=== PATIENT | female | born 1995 | race Caucasian/White ===

== ENCOUNTER 2017-09-05 13:20 | Outpatient (CLI) | payer MEDICAID ==
[~2017-09-05] VITALS: Ht 154.9 cm; Wt 82.6 kg
[~2017-09-05 13:20] MED LIST: ONDA8TAB13
[2017-09-05] MEDS ORDERED: PNV11TAB5 PO ×2 (13:32)
[2017-09-05] MEDS ORDERED: MONT10TA21 PO ×2 (13:33)
[2017-09-05] MEDS ORDERED: RT-ALBUINH IH ×2 (13:35)
[2017-09-05] MEDS ORDERED: BUDE180A IH ×2 (13:36)
[2017-09-05 13:40] VITALS: BP 127/74
[2017-09-05 14:10] VITALS: BP 121/57
[2017-09-05] MEDS ORDERED: D5 LR IV SOLUTION 1,000 ML IV ONE (14:30)
[2017-09-05 14:40] VITALS: BP 121/57
[2017-09-05 14:48] LABS: BILIRUBIN,URINE NEGATIVE (NEGATIVE); CLARITY,URINE SLIGHTLY CLOUDY; COLOR,URINE AMBER; GLUCOSE, URINE (UA) NEGATIVE (NEGATIVE); KETONES,URINE NEGATIVE (NEGATIVE); LEUKOCYTE ESTERASE ,URINE 2+ (NEGATIVE); NITRITE,URINE NEGATIVE (NEGATIVE); PH,URINE 6.5 (5-9); PROTEIN,URINE 1+ (NEGATIVE); UROBILINOGEN,URINE NORMAL (NORMAL)
[2017-09-05 15:16] LABS: BACTERIA,URINE FEW /HPF; CALCIUM OXALATE CRYSTALS,UR MODERATE /LPF
[2017-09-05 15:18] LABS: BASOPHILS % (AUTO) 0 % (0-10); EOSINOPHILS # (AUTO) 0.2 10^3/uL (0.0-0.3); EOSINOPHILS % (AUTO) 2 % (0-10); HEMATOCRIT 30 % (35-52); LYMPHOCYTES # (AUTO) 1.2 X 10^3 (1.0-4.0); LYMPHOCYTES % (AUTO) 15 % (12-44); MEAN CORPUSCULAR HEMOGLOBIN 28 PG (25-34); MEAN CORPUSCULAR HGB CONC 33 G/DL (32-36); MEAN CORPUSCULAR VOLUME 85 FL (80-99); MEAN PLATELET VOLUME 10.5 FL (7.4-10.4); MONOCYTES # (AUTO) 0.8 X 10^3 (0.0-1.0); MONOCYTES % (AUTO) 10 % (0-12); NEUTROPHILS # (AUTO) 5.9 X 10^3 (1.8-7.8); NEUTROPHILS % (AUTO) 73 % (42-75); PLATELET COUNT 146 10^3/uL (130-400); RED BLOOD COUNT 3.56 10^6/uL (4.35-5.85); RED CELL DISTRIBUTION WIDTH 13.6 % (10.0-14.5); WHITE BLOOD COUNT 8.2 10^3/uL (4.3-11.0)
[2017-09-05 15:37] LABS: ALANINE AMINOTRANSFERASE 11 U/L (0-55); ALBUMIN 3.4 GM/DL (3.2-4.5); ALKALINE PHOSPHATASE 89 U/L (40-136); BILIRUBIN,TOTAL 0.2 MG/DL (0.1-1.0); BUN/CREATININE RATIO 14; CALCIUM 9.1 MG/DL (8.5-10.1); CARBON DIOXIDE 21 MMOL/L (21-32); CHLORIDE 109 MMOL/L (98-107); CREATININE SERUM 0.51 MG/DL (0.60-1.30); GFR ESTIMATED > 60; GLUCOSE 70 MG/DL (70-105); POTASSIUM 3.9 MMOL/L (3.6-5.0); SODIUM 138 MMOL/L (135-145); TOTAL PROTEIN 6.2 GM/DL (6.4-8.2)
[2017-09-05 16:15] VITALS: BP 118/59
[2017-09-05] MEDS ORDERED: D5 LR IV SOLUTION 1,000 ML IV SCH (16:15)
[2017-09-05] MEDS ORDERED: AMPICILLIN INJECTION 2,000 MG in NS (IVPB) 50 ML IV SCH (16:57)
[2017-09-05] MEDS ORDERED: BETAMETHASONE ACE/NA PHOS 6 MG/ML (CELESTONE SOLUSPAN) IM SCH (17:00)
[2017-09-05] MEDS ORDERED: AMPICILLIN 2000 MG INJECTION (IM/IV) ONE (17:01)
[2017-09-05] MEDS ORDERED: NS (IVPB) 50 ML ONE (17:02)
[2017-09-05] MEDS ORDERED: BETAMETHASONE ACE/NA PHOS 6 MG/ML (CELESTONE SOLUSPAN) ONE (17:02)
[2017-09-05] MEDS ORDERED: CATHETER FLUSH 10 ML SYR IV PRN (17:15)
[2017-09-05 18:05] VITALS: BP 112/53
[2017-09-05] MEDS ORDERED: AMPICILLIN INJECTION 1,000 MG in NS (IVPB) 50 ML IV SCH (21:00)
--- NOTE | 2017-09-06 11:09 | Physician Query-Final Dx ---
CAROLA LANDA 09/06/17 1109: Clinic Account Progress/Dx Physician Query: Please give diagnosis Date of Service Sep 05, 2017 at 13:20 YORDAN BENEDICT MD 09/07/17 0738: Clinic Account Progress/Dx DIAGNOSIS: Diagnosis labor CAROLA LANDA Sep 06, 2017 11:09 YORDAN BENEDICT MD Sep 07, 2017 07:38
== END 2017-09-05 20:10 | disposition home or self-care (01) ==
LOC: WSo 13:20 → LDRP 13:21 → 3RD 16:45 → LDRP 16:45 → WSo 20:10
PROVIDERS: ATTEND Obstetrics & Gynecology
DX: O60.03 Preterm labor without delivery, third trimester (principal); Z3A.34 34 weeks gestation of pregnancy
CPT/HCPCS: 36415; 80053; 81000; 85025; 87077; 87088; 87186; 96361; 96372; 96374; 99214

== ENCOUNTER → 2017-09-06 | Outpatient (CLI) | payer MEDICAID ==
[~2017-09-06] MED LIST changes: +BETAMETHASONE ACE/NA PHOS 6 MG/ML (CELESTONE SOLUSPAN) IM SCH; +BETAMETHASONE ACE/NA PHOS 6 MG/ML (CELESTONE SOLUSPAN) ONE; +BUDE180A IH; +MONT10TA21 PO; +PNV11TAB5 PO; +RT-ALBUINH IH
--- NOTE | 2017-09-07 10:12 | Physician Query-Final Dx ---
CAROLA LANDA 09/07/17 1012: Clinic Account Progress/Dx Physician Query: Please give diagnosis Date of Service Sep 06, 2017 at 16:33 YORDAN BENEDICT MD 09/07/17 1324: Clinic Account Progress/Dx DIAGNOSIS: Diagnosis labor CAROLA LANDA Sep 07, 2017 10:12 YORDAN BENEDICT MD Sep 07, 2017 13:24
== END ==
LOC: WSo 16:33
PROVIDERS: ATTEND Obstetrics & Gynecology
DX: O60.00 Preterm labor without delivery, unspecified trimester (principal)
CPT/HCPCS: 96372

== ENCOUNTER 2017-09-12 15:52 | Outpatient (CLI) | payer MEDICAID ==
[~2017-09-12] VITALS: Ht 154.9 cm; Wt 82.1 kg
[~2017-09-12 15:52] MED LIST changes: -BETAMETHASONE ACE/NA PHOS 6 MG/ML (CELESTONE SOLUSPAN) IM SCH; -BETAMETHASONE ACE/NA PHOS 6 MG/ML (CELESTONE SOLUSPAN) ONE
[2017-09-12 16:13] VITALS: BP 111/61
[2017-09-12] MEDS ORDERED: LACTATED RINGERS 1,000 ML IV PRN (16:38)
[2017-09-12] MEDS ORDERED: raNItidine INJECTION 50 MG in NS (IVPB) 50 ML IV ONE (16:45)
[2017-09-12] MEDS ORDERED: METOCLOPRAMIDE INJ 10 MG/2 ML (REGLAN) IV ONE (16:45)
[2017-09-12] MEDS ORDERED: CITRIC ACID/SOB CIT (BICITRA) 30 ML UDC PO ONE (16:45)
--- NOTE | 2017-09-13 11:41 | Physician Query-Final Dx ---
CAROLA LANDA 09/13/17 1141: Clinic Account Progress/Dx Physician Query: Please give diagnosis Date of Service Sep 12, 2017 at 15:52 YORDAN BENEDICT MD 09/13/17 1734: Clinic Account Progress/Dx DIAGNOSIS: Diagnosis False labor/vaginal cyst CAROLA LANDA Sep 13, 2017 11:41 YORDAN BENEDICT MD Sep 13, 2017 17:34
== END 2017-09-12 16:45 | disposition home or self-care (01) ==
LOC: WSo 15:52 → LDRP 15:53 → WSo 16:45
PROVIDERS: ATTEND Obstetrics & Gynecology
DX: O47.03 False labor before 37 completed weeks of gestation, third trimester (principal); O26.893 Other specified pregnancy related conditions, third trimester; N89.8 Other specified noninflammatory disorders of vagina; Z3A.35 35 weeks gestation of pregnancy
CPT/HCPCS: 99212

== ENCOUNTER 2020-10-25 12:39 | Emergency (ER) | payer MEDICAID ==
[~2020-10-25 12:39] MED LIST changes: +AMOX-355 PO; +DOCU100C37 PO; +IBUP-1780 PO; +METR500T PO; +OXYC-556 PO; +OXYC1TAB11 PO; +POTA25TA7 PO
[2020-10-28] MEDS ORDERED: ONDA8TAB13 PO (08:03)
[2020-10-28] MEDS ORDERED: AMOX-358 PO (08:03)
== END 2020-10-25 13:30 | disposition left against medical advice (07) ==
LOC: EDUNIT# 12:39 → ER 12:40
DX: R11.2 Nausea with vomiting, unspecified (principal); E16.2 Hypoglycemia, unspecified

== ENCOUNTER 2020-10-25 13:13 | Outpatient (CLI) | payer MEDICAID ==
[~2020-10-25] VITALS: Ht 154.7 cm; Wt 94.5 kg
[2020-10-25] MEDS ORDERED: D5 LR IV SOLUTION 1,000 ML IV SCH ×3 (13:45→14:00)
[2020-10-25] MEDS ORDERED: ACETAMINOPHEN 500 MG TAB (TYLENOL) PO ONE (14:00)
[2020-10-25 14:05] LABS: CLARITY,URINE CLEAR; COLOR,URINE YELLOW; GLUCOSE, URINE (UA) NEGATIVE (NEGATIVE); KETONES,URINE 3+ (NEGATIVE); LEUKOCYTE ESTERASE ,URINE NEGATIVE (NEGATIVE); NITRITE,URINE NEGATIVE (NEGATIVE); PROTEIN,URINE NEGATIVE (NEGATIVE)
[2020-10-25] MEDS ORDERED: ONDANSETRON 4 MG/2 ML (SDV) Z0FRAN ONE (14:14)
[2020-10-25 14:21] LABS: BILIRUBIN,URINE NEGATIVE (NEGATIVE)
[2020-10-25 14:22] LABS: BACTERIA,URINE MODERATE /HPF; RBC,URINE 0-2 /HPF
[2020-10-25 14:26] LABS: BASOPHILS % (AUTO) 0 % (0-10); EOSINOPHILS # (AUTO) 0.1 10^3/uL (0.0-0.3); EOSINOPHILS % (AUTO) 1 % (0-10); HEMATOCRIT 35 % (35-52); HEMOGLOBIN 11.6 g/dL (11.5-16.0); LYMPHOCYTES # (AUTO) 1.2 X 10^3 (1.0-4.0); LYMPHOCYTES % (AUTO) 13 % (12-44); MEAN CORPUSCULAR HEMOGLOBIN 29 pg (25-34); MEAN CORPUSCULAR HGB CONC 33 g/dL (32-36); MEAN CORPUSCULAR VOLUME 86 fL (80-99); MEAN PLATELET VOLUME 9.9 fL (9.0-12.2); MONOCYTES # (AUTO) 0.7 X 10^3 (0.0-1.0); MONOCYTES % (AUTO) 7 % (0-12); NEUTROPHILS # (AUTO) 7.4 X 10^3 (1.8-7.8); NEUTROPHILS % (AUTO) 79 % (42-75); PLATELET COUNT 225 10^3/uL (130-400); WHITE BLOOD COUNT 9.3 10^3/uL (4.3-11.0)
[2020-10-25 14:30] VITALS: BP 120/56
[2020-10-25 14:48] LABS: ALBUMIN 3.8 GM/DL (3.2-4.5); BILIRUBIN,TOTAL 0.3 MG/DL (0.1-1.0); CALCIUM 9.5 MG/DL (8.5-10.1); CREATININE SERUM 0.63 MG/DL (0.60-1.30); POTASSIUM 3.5 MMOL/L (3.6-5.0); TOTAL PROTEIN 7.1 GM/DL (6.4-8.2)
[2020-10-25 16:22] VITALS: BP 120/56
--- NOTE | 2020-10-26 08:28 | Physician Query-Final Dx ---
TASHA MAURO 10/26/20 0827: Clinic Account Progress/Dx Physician Query: Please give diagnosis Please include # weeks gestation Date of Service Oct 25, 2020 at 13:13 YORDAN BENEDICT MD 10/28/20 0811: Clinic Account Progress/Dx DIAGNOSIS: Diagnosis Hyperemesis gravidarum at 9 weeks gestation with bilateral mastitis TASHA MAURO Oct 26, 2020 08:27 YORDAN BENEDICT MD Oct 28, 2020 08:11
== END 2020-10-25 19:25 | disposition home or self-care (01) ==
LOC: WSo 13:13 → LDRP 13:14 → WSo 19:25
PROVIDERS: ATTEND Obstetrics & Gynecology
DX: O21.0 Mild hyperemesis gravidarum (principal); Z3A.09 9 weeks gestation of pregnancy; O91.211 Nonpurulent mastitis associated with pregnancy, first trimester
CPT/HCPCS: 36415; 80053; 81000; 85025; 87088; 96361; 96374; 99212

== ENCOUNTER 2020-10-27 10:25 | Observation (INO) | payer MEDICAID ==
[~2020-10-27] VITALS: Ht 154.9 cm; Wt 92.0 kg
[2020-10-27 10:40] VITALS: BP 110/52
[2020-10-27 10:45] VITALS: BP 110/52
[2020-10-27] MEDS ORDERED: ONDANSETRON 4 MG/2 ML (SDV) Z0FRAN IVP ONE ×2 (11:00→12:45)
[2020-10-27] MEDS: D5 LR IV SOLUTION 1,000 ML IV SCH ×4 (11:41→20:18)
[2020-10-27 11:53] LABS: BASOPHILS % (AUTO) 0 % (0-10); EOSINOPHILS % (AUTO) 0 % (0-10); HEMATOCRIT 35 % (35-52); HEMOGLOBIN 12.1 g/dL (11.5-16.0); LYMPHOCYTES # (AUTO) 1.3 10^3/uL (1.0-4.0); LYMPHOCYTES % (AUTO) 13 % (12-44); MEAN CORPUSCULAR HEMOGLOBIN 29 pg (25-34); MEAN CORPUSCULAR HGB CONC 34 g/dL (32-36); MEAN CORPUSCULAR VOLUME 85 fL (80-99); MONOCYTES # (AUTO) 0.5 10^3/uL (0.0-1.0); MONOCYTES % (AUTO) 5 % (0-12); NEUTROPHILS # (AUTO) 7.7 10^3/uL (1.8-7.8); NEUTROPHILS % (AUTO) 81 % (42-75); PLATELET COUNT 244 10^3/uL (130-400); WHITE BLOOD COUNT 9.6 10^3/uL (4.3-11.0)
[2020-10-27 12:17] LABS: BILIRUBIN,TOTAL 0.4 MG/DL (0.1-1.0); CALCIUM 9.8 MG/DL (8.5-10.1); CREATININE SERUM 0.66 MG/DL (0.60-1.30); POTASSIUM 3.4 MMOL/L (3.6-5.0); TOTAL PROTEIN 7.3 GM/DL (6.4-8.2)
[2020-10-27] MEDS ORDERED: PIPERACILLIN/TAZO 4.5 GM/NS 100 ML IV NR ×2 (12:30)
[2020-10-27 15:14] VITALS: BP 92/47
[2020-10-27] MEDS ORDERED: methylPREDNISolone 40 MG/ML (Solu-MEDROL) VIAL IV NR (16:30)
[2020-10-27 20:32] VITALS: BP 117/67
[2020-10-27] MEDS: PIPERACILLIN/TAZOBACTAM (BULK) 4.5 GM in NS (IVPB) 100 ML IV SCH (20:32)
[2020-10-28 00:30] VITALS: BP 92/55
[2020-10-28] MEDS: D5 LR IV SOLUTION 1,000 ML IV SCH ×2 (01:38→11:29)
[2020-10-28] MEDS: PIPERACILLIN/TAZOBACTAM (BULK) 4.5 GM in NS (IVPB) 100 ML IV SCH ×2 (04:31→11:56)
--- NOTE | 2020-10-28 07:56 | Physician Query-Final Dx ---
TASHA MAURO 10/28/20 0756: Clinic Account Progress/Dx Physician Query: Please give diagnosis Please include # weeks gestation Date of Service Oct 27, 2020 at 10:25 YORDAN BENEDICT MD 10/28/20 0812: Clinic Account Progress/Dx DIAGNOSIS: Diagnosis Hyperemesis gestation at 9 weeks with bilateral mastitis TASHA MAURO Oct 28, 2020 07:56 YORDAN BENEDICT MD Oct 28, 2020 08:12
--- NOTE | 2020-10-28 08:01 | History & Physical ---
History and Physical Date Seen by Provider: Oct 28, 2020 Time Seen by Provider: 07:58 This patient is a 24-year-old female who is currently at 9 weeks gestation. Her is complicated by persistent hyperemesis Gravidarum.Her status is also complicated bilateralMastitis due to bilateral nipple piercings. She had been p rescribed dicloxacillin but she could not tolerate thatPrior to the dye cocci had taken amoxicillin apparently that did notProve efficacious. Patient was admitted for observation due to hyperemesis and was started on Zosyn forCoverage of her mastitis. Patient is markedly improved we will allow discharge home nowAnd we will change her antibiotic Allergies are none Medical social and surgical history is are her per her antepartum record HEENT exam is normal Neck is supple no lymphadenopathy no thyromegaly Abdomen is Soft nontender nondistended Breast exam is deferred - Examination of her breasts2 days ago showed bilateral lateral mastitis Pelvic exam was deferred Assessment and plan 9-week with hyperemesis gravidarum now improved with hydration and antiemetics. Patient also has mastitis and she has had several doses of Zosyn. We will allow discharge home after her next dose of Zosyn and we will change her to Augmentin which hopefully she can tolerate. Patient is given return to clinic precautions and will be seen in follow-up next week Hyperemesis gravidarum and bilateral mastitis Allergies and Home Medications Allergies Coded Allergies: NKANo Known Allergies (Unverified Allergy, Mild, 09/23/08) Patient Home Medication List Home Medication List Reviewed: Yes Albuterol Sulfate (Proair Hfa) 1 Puff Puff, 2 PUFF IH Q4H PRN for WHEEZING, (Reported) Entered as Reported by: GHASSAN REDMOND on 09/05/17 1335 Discontinued Medications Amoxicillin/Potassium Clav (Augmentin 500-125 Tablet) 1 Each Tablet, 1 EACH PO TIDWM Discontinued Reason: No Longer Taking Prescribed by: ALLAN CRISTOBAL on 10/06/17 1414 Budesonide (Pulmicort Flexhaler) 180 Mcg Aer.pow.ba, 1 PUFF IH HS, (Reported) Discontinued Reason: No Longer Taking Entered as Reported by: GHASSAN REDMOND on 09/05/17 1336 Docusate Sodium (Docusate Sodium) 100 Mg Capsule, 100 MG PO BID Discontinued Reason: No Longer Taking Prescribed by: YORDAN STRONG on 09/29/172121 Metronidazole (Flagyl) 500 Mg Tablet, 500 MG PO BID WITH MEALS Discontinued Reason: No Longer Taking Prescribed by: ALLAN CRISTOBAL on 10/06/17 141 Montelukast Sodium (Singulair) 10 Mg Tablet, 10 MG PO HS, (Reported) Discontinued Reason: No Longer Taking Entered as Reported by: GHASSAN REDMOND on 09/05/17 1333 Oxycodone HCl/Acetaminophen (Oxycodone-Acetaminophen 5-325) 1 Each Tablet, 1 TAB PO Q4H PRN for PAIN-MODERATE Discontinued Reason: No Longer Taking Prescribed by: ALLAN CRISTOBAL on 10/06/17 141 Potassium Bicarbonate/Cit AC (Potassium 25 Meq Tablet Eff) 25 Meq Tablet.eff, 25 MEQ PO BID WITH MEALS Discontinued Reason: No Longer Taking Prescribed by: ALLAN CRISTOBAL on 10/06/17 141 YORDAN BENEDICT MD Oct 28, 2020 08:01
[2020-10-28] MEDS ORDERED: ONDA8TAB13 PO ×2 (08:03)
[2020-10-28] MEDS ORDERED: AMOX-358 PO ×2 (08:03)
--- NOTE | 2020-10-28 08:05 | Discharge Inst-Surgical ---
Discharge Inst-Surgical Depart Medication/Instructions New, Converted or Re-Newed RX: Transmitted to Pharmacy Consults/Follow Up Patient Instructions: As directed Orders & Referrals Follow Up Appt: Return to clinic as scheduled next weeks. Activity: as tolerated. Diet: As tolerated- shower or tub bathe as desired. Patient to return to the clinic as soon as possible for: Temperature greater than 101F, Severe Pain, Foul discharge from incision or vagina, Excessive Bleeding (more than a period). Activity Activity as Tolerated: Yes Diet Discharge Diet: No Restrictions YORDAN BENEDICT MD Oct 28, 2020 08:05
[2020-10-28 08:15] VITALS: BP 107/53
[2020-10-28] MEDS ORDERED: ONDANSETRON 4 MG/2 ML (SDV) Z0FRAN ONE (11:51)
[2020-10-28] MEDS ORDERED: ONDANSETRON 4 MG/2 ML (SDV) Z0FRAN IVP ONE (12:00)
== END 2020-10-28 13:24 | disposition home or self-care (01) ==
LOC: WSo 10:25 → LDRP 10:27 → WSo 10-28 10:10 → LDRP 10-28 10:10
PROVIDERS: ADMIT Obstetrics & Gynecology; ATTEND Obstetrics & Gynecology
DX: O21.0 Mild hyperemesis gravidarum (principal); Z3A.09 9 weeks gestation of pregnancy; O91.211 Nonpurulent mastitis associated with pregnancy, first trimester
CPT/HCPCS: 36415; 80053; 85025

== ENCOUNTER 2020-10-29 10:59 | Observation (INO) | payer MEDICAID ==
[~2020-10-29] VITALS: Ht 154 cm; Wt 92.0 kg
[~2020-10-29 10:59] MED LIST changes: +AMOX-358 PO; +ONDA8TAB13 PO
[2020-10-29] MEDS ORDERED: ONDANSETRON 4 MG/2 ML (SDV) Z0FRAN IVP ONE ×2 (11:30→14:00)
[2020-10-29] MEDS ORDERED: D5 LR IV SOLUTION 1,000 ML IV ONE (11:47)
[2020-10-29 11:53] VITALS: BP 108/57
[2020-10-29 11:57] VITALS: BP 108/57
[2020-10-29] MEDS: D5 LR IV SOLUTION 1,000 ML IV SCH ×3 (12:27→16:42)
[2020-10-29 12:37] LABS: BASOPHILS % (AUTO) 0 % (0-10); EOSINOPHILS % (AUTO) 0 % (0-10); HEMATOCRIT 34 % (35-52); HEMOGLOBIN 11.9 g/dL (11.5-16.0); LYMPHOCYTES # (AUTO) 0.9 10^3/uL (1.0-4.0); LYMPHOCYTES % (AUTO) 9 % (12-44); MEAN CORPUSCULAR HEMOGLOBIN 29 pg (25-34); MEAN CORPUSCULAR HGB CONC 35 g/dL (32-36); MEAN CORPUSCULAR VOLUME 84 fL (80-99); MONOCYTES # (AUTO) 0.6 10^3/uL (0.0-1.0); MONOCYTES % (AUTO) 5 % (0-12); NEUTROPHILS # (AUTO) 9.3 10^3/uL (1.8-7.8); NEUTROPHILS % (AUTO) 85 % (42-75); PLATELET COUNT 240 10^3/uL (130-400); WHITE BLOOD COUNT 10.9 10^3/uL (4.3-11.0)
[2020-10-29 12:53] LABS: ALBUMIN 3.7 GM/DL (3.2-4.5)
[2020-10-29 12:54] LABS: POTASSIUM 3.4 MMOL/L (3.6-5.0)
[2020-10-29 12:55] LABS: CALCIUM 9.5 MG/DL (8.5-10.1)
[2020-10-29 12:56] LABS: TOTAL PROTEIN 7.1 GM/DL (6.4-8.2)
[2020-10-29 12:58] LABS: BILIRUBIN,TOTAL 0.4 MG/DL (0.1-1.0)
[2020-10-29 12:59] LABS: CREATININE SERUM 0.59 MG/DL (0.60-1.30)
[2020-10-29 13:50] VITALS: BP 113/79
[2020-10-29] MEDS ORDERED: methylPREDNISolone 40 MG/ML (Solu-MEDROL) VIAL IV NR (14:00)
[2020-10-29] MEDS ORDERED: PIPERACILLIN/TAZO 4.5 GM/NS 100 ML IV NR ×2 (14:15)
[2020-10-29] MEDS ORDERED: PROMETHAZINE INJ 25 MG/ML (PHENERGAN) AMP IVP ONE (15:30)
[2020-10-29] MEDS ORDERED: BUTORPHANOL INJ 2 MG/ML (STADOL) VIAL IV ONE (15:45)
[2020-10-29] MEDS: CATHETER FLUSH 10 ML SYR IV PRN ×3 (17:40→23:54)
[2020-10-29 17:42] VITALS: BP 107/56
--- NOTE | 2020-10-29 17:50 | Diagnostic Imaging Report ---
INDICATION: Nausea, vomiting, diarrhea. COMPARISON: None FINDINGS: Single frontal supine radiographic view of the abdomen was obtained. Small bowel loops are nondistended. There is no large collection of free intraperitoneal air. No unexpected extraosseous calcifications or radiopaque foreign bodies are seen. Osseous structures show no gross acute abnormalities. IMPRESSION: 1. No acute cardiopulmonary process. Dictated by: Dictated on workstation # [id number]
[2020-10-29] MEDS ORDERED: PROMETHAZINE INJ 25 MG/ML (PHENERGAN) AMP IVP PRN (18:00)
[2020-10-29] MEDS ORDERED: BISACODYL 10 MG SUPP (DULCOLAX) PR PRN (18:15)
[2020-10-29] MEDS: METOCLOPRAMIDE INJ 10 MG/2 ML (REGLAN) IVP SCH ×2 (18:29→23:54)
[2020-10-29 20:01] VITALS: BP 83/45
[2020-10-29] MEDS: PIPERACILLIN/TAZOBACTAM (BULK) 4.5 GM in NS (IVPB) 100 ML IV SCH (20:14)
[2020-10-29] MEDS ORDERED: FAMOTIDINE 20MG/2ML IV (PEPCID) ONE (21:06)
[2020-10-29] MEDS: FAMOTIDINE 20MG/2ML IV (PEPCID) IVP SCH (21:11)
[2020-10-29 23:56] VITALS: BP 88/50
[2020-10-30] MEDS: PIPERACILLIN/TAZOBACTAM (BULK) 4.5 GM in NS (IVPB) 100 ML IV SCH ×2 (04:06→13:22)
[2020-10-30 04:08] VITALS: BP 92/52
[2020-10-30] MEDS: METOCLOPRAMIDE INJ 10 MG/2 ML (REGLAN) IVP SCH ×2 (06:04→13:23)
[2020-10-30 08:17] VITALS: BP 106/60
--- NOTE | 2020-10-30 08:20 | History & Physical ---
History and Physical Date Seen by Provider: Oct 30, 2020 Time Seen by Provider: 09:00 This patient is a 25-year-old female currently at 9 weeks gestation. She is admitted for persistent nausea and vomiting and abdominal pain.Her picture is complicated by bilateral mastitis apparently due to bilateral nipple piercings. Patient has had 2 previous admissions in the past week forThis same issue. She Responds well to hydration and antiemetics On each admission and when discharged Initially does well however she does feel that her oral antibiotics for her mastitis are being very poorly tolerated Causing her to relapse To the point of persistent unremitting nausea and vomiting. Allergies none none Medications arePrenatal vitamins andDicloxacillin/Augmentin Medical social and surgical history is all per the antepartum record HEENT exam is normal Neck is supple no lymphadenopathy no thyromegaly Abdomen soft minimally tender Extremities show no clubbing cyanosis. There is no Homans' sign. Pelvic exam is deferred Lab work was obtained on admission revealed a essentially stable notable abnormality is an increase in the AST and ALT likely from her emesis Assessment and plan 9-week intrauterine with unrelenting nausea and vomiting/hyperemesis gravidarum as well as bilateral mastitis. Patient will be hydrated covered with IV antibioticAnd given supportive care with antiemetics. When she improves we will consider discharge home 9-week with hyperemesis gravidarum and bilateral mastitis Allergies and Home Medications Allergies Coded Allergies: NKANo Known Allergies (Unverified Allergy, Mild, 09/23/08) Patient Home Medication List Home Medication List Reviewed: Yes Albuterol Sulfate (Proair Hfa) 1 Puff Puff, 2 PUFF IH Q4H PRN for WHEEZING, (Reported) Entered as Reported by: GHASSAN REDMOND on 09/05/17 1335 Amoxicillin/Potassium Clav (Augmentin 875-125 Tablet) 1 Each Tablet, 1 EACH PO BID Prescribed by: YORDAN STRONG on 10/28/20 0803 Ondansetron (Ondansetron Odt) 8 Mg Tab.rapdis, 8 MG PO Q6H Prescribed by: YORDAN STRONG on 10/28/20 0803 Discontinued Medications Amoxicillin/Potassium Clav (Augmentin 500-125 Tablet) 1 Each Tablet, 1 EACH PO TIDWM Discontinued Reason: No Longer Taking Prescribed by: ALLAN CRISTOBAL on 10/06/17 1414 Budesonide (Pulmicort Flexhaler) 180 Mcg Aer.pow.ba, 1 PUFF IH HS, (Reported) Discontinued Reason: No Longer Taking Entered as Reported by: GHASSAN REDMOND on 09/05/17 1336 Docusate Sodium (Docusate Sodium) 100 Mg Capsule, 100 MG PO BID Discontinued Reason: No Longer Taking Prescribed by: YORDAN STRONG on 09/29/17 212 Metronidazole (Flagyl) 500 Mg Tablet, 500 MG PO BID WITH MEALS Discontinued Reason: No Longer Taking Prescribed by: ALLAN CRISTOBAL on 10/06/17 1414 Montelukast Sodium (Singulair) 10 Mg Tablet, 10 MG PO HS, (Reported) Discontinued Reason: No Longer Taking Entered as Reported by: GHASSAN REDMOND on 09/05/17 1333 Oxycodone HCl/Acetaminophen (Oxycodone-Acetaminophen 5-325) 1 Each Tablet, 1 TAB PO Q4H PRN for PAIN-MODERATE Discontinued Reason: No Longer Taking Prescribed by: ALLAN CRISTOBAL on 10/06/17 141 Potassium Bicarbonate/Cit AC (Potassium 25 Meq Tablet Eff) 25 Meq Tablet.eff, 25 MEQ PO BID WITH MEALS Discontinued Reason: No Longer Taking Prescribed by: ALLAN CRISTOBAL on 10/06/17 141 YORDAN BENEDICT MD Oct 30, 2020 08:20
--- NOTE | 2020-10-30 08:23 | Progress Note ---
Standard Progress Note Progress Notes/Assess & Plan Date Seen by a Provider: Oct 30, 2020 Time Seen by a Provider: 08:20 Progress/Assessment & Plan Patient reports feeling a bit better this morning. She is tolerating some oral intake. Her abdominal pain has resolved.Or mastitis is somewhat improved.She feels like she has had better control of her nausea with Phenergan. Vital Signs Date Time Temp Pulse Resp B/P (MAP) Pulse Ox O2 Delivery O2 Flow Rate FiO2 10/30/20 04:08 36.8 64 16 92/52 (65) 97 Room Air 10/29/20 23:56 36.6 67 16 88/50 (63) 97 Room Air 10/29/20 20:01 36.4 66 16 83/45 (58) 95 Room Air 10/29/20 17:42 96 20 107/56 (73) 99 Nasal Cannula 2.00 10/29/20 13:50 92 20 113/79 (90) 97 Room Air 10/29/20 11:57 36.9 78 18 108/57 (74) 99 Room Air 10/29/20 11:53 36.9 77 18 99 Room Air 10/29/20 11:53 36.9 77 18 99 Room Air I & O 10/30/20 06:59 Intake Total 2120 ml Output Total 1300 ml Balance 820 ml Vital signs are stable. Patient is afebrile. Single flatplate x-ray of the abdomen with and chest was obtainedYesterday report showsNo evidence of bowel obstructionAnd no acute abnormal Physical exam is unchanged Assessment and plan Hospital day 2 with third admission this week for hyperemesis gravidarum. Again patient is symptomatically improved. Her Bilateral mastitis is somewhat improved as well. We discussed discharge home al [place] patient holding her oral antibioticsIn favor of observation.Should her mastitis worsenWe would entertain dailyAntibioticsVersus oral antibiotics as she just is not tolerating that at all. Final Diagnosis Hyperemesis gravidarum and bilateral mastitis YORDAN BENEDICT MD Oct 30, 2020 08:23
[2020-10-30] MEDS: D5 LR IV SOLUTION 1,000 ML IV SCH (08:24)
[2020-10-30] MEDS ORDERED: FAMO20VI8 PO (08:31)
[2020-10-30] MEDS ORDERED: phenergan supp (08:31)
[2020-10-30] MEDS ORDERED: PROM25TA14 PO (08:31)
--- NOTE | 2020-10-30 08:34 | Discharge Inst-Surgical ---
Discharge Inst-Surgical Depart Medication/Instructions New, Converted or Re-Newed RX: Transmitted to Pharmacy Consults/Follow Up Patient Instructions: As directed Orders & Referrals Follow Up Appt: Return to clinic for return OB as scheduled Activity: Rest for 24 hours, than as tolerated. Please call in RX to patient pharmacy. For Phenergan rectal suppositories 25 mg dispense 20 Sig 1 per rectum every 6 hours as needed nausea and vomiting Diet: As tolerated- may shower or tub bathe as desired. Patient to return to the clinic as soon as possible for: Temperature greater than 101F, Severe Pain, Foul discharge from incision or vagina, Excessive Bleeding (more than a period). Activity Activity as Tolerated: Yes Diet Discharge Diet: No Restrictions YORDAN BENEDICT MD Oct 30, 2020 08:34
[2020-10-30] MEDS ORDERED: PROMETHAZINE 25 MG (PHENERGAN) TAB PO PRN (08:45)
[2020-10-30] MEDS: FAMOTIDINE 20MG/2ML IV (PEPCID) IVP SCH (09:37)
[2020-10-30 13:33] VITALS: BP 114/56
[2020-10-30 17:30] VITALS: BP 114/56
== END 2020-10-30 08:24 | disposition home or self-care (01) ==
LOC: WSo 10:59 → LDRP 11:02 → WSo 11:02 → LDRP 11:15 → WSo 16:59 → LDRP 16:59 → UNDOADMOB 17:00 → LDRP 17:00 → UNDODISOB 10-30 17:30 → EDSTATUS 11-02 10:04
PROVIDERS: ADMIT Obstetrics & Gynecology; ATTEND Obstetrics & Gynecology
DX: O21.0 Mild hyperemesis gravidarum (principal); O91.211 Nonpurulent mastitis associated with pregnancy, first trimester; Z3A.09 9 weeks gestation of pregnancy; Z79.899 Other long term (current) drug therapy; Z79.891 Long term (current) use of opiate analgesic
CPT/HCPCS: 36415; 74018; 80053; 85025; 96361; 96374; 96375; 96376; 99211; G0378

== ENCOUNTER 2020-10-31 13:16 | Observation (INO) | payer MEDICAID ==
[2020-10-31] VITALS (7 sets, daily range): BP systolic 89–119; BP diastolic 46–58
[~2020-10-31 13:16] MED LIST changes: +FAMO20VI8 PO; +PROM25TA14 PO; +phenergan supp
[2020-10-31] MEDS ORDERED: PROMETHAZINE 25 MG (PHENERGAN) SUPP PR ONE ×2 (14:15→19:30)
[2020-10-31 15:40] LABS: CLARITY,URINE CLEAR; COLOR,URINE YELLOW; GLUCOSE, URINE (UA) NEGATIVE (NEGATIVE); KETONES,URINE 3+ (NEGATIVE); LEUKOCYTE ESTERASE ,URINE NEGATIVE (NEGATIVE); NITRITE,URINE NEGATIVE (NEGATIVE); PH,URINE 7.5 (5-9); PROTEIN,URINE NEGATIVE (NEGATIVE)
[2020-10-31 15:46] LABS: BILIRUBIN,URINE 1+ (NEGATIVE)
[2020-10-31 15:49] LABS: BACTERIA,URINE NEGATIVE /HPF
[2020-10-31] MEDS ORDERED: THIAMINE INJECTION 100 MG in NS (IVPB) 50 ML IV ONE (16:00)
[2020-10-31] MEDS ORDERED: METOCLOPRAMIDE INJ 10 MG/2 ML (REGLAN) IVP ONE (16:00)
[2020-10-31] MEDS ORDERED: D5 LR IV ONE (16:15)
[2020-10-31] MEDS ORDERED: THIAMINE IV ONE (16:15)
[2020-10-31] MEDS ORDERED: D5 LR IV SOLUTION 1,000 ML IV ONE ×2 (18:15→20:15)
[2020-10-31] MEDS ORDERED: PROMETHAZINE 25 MG (PHENERGAN) SUPP ONE (19:41)
[2020-10-31] MEDS ORDERED: methylPREDNISolone 40 MG/ML (Solu-MEDROL) VIAL IV PRN (21:15)
[2020-10-31] MEDS ORDERED: ONDANSETRON 4 MG/2 ML (SDV) Z0FRAN IVP ONE (21:15)
[2020-10-31] MEDS ORDERED: ONDANSETRON 4 MG/2 ML (SDV) Z0FRAN ONE (21:17)
[2020-10-31] MEDS ORDERED: methylPREDNISolone 40 MG/ML (Solu-MEDROL) VIAL ONE (21:17)
[2020-11-01] MEDS ORDERED: D5 LR IV SOLUTION 1,000 ML IV SCH (05:00)
[2020-11-01 05:22] VITALS: BP 101/53
--- NOTE | 2020-11-01 08:05 | History & Physical ---
History and Physical Date Seen by Provider: Nov 01, 2020 Time Seen by Provider: 08:03 This patient is a 24-year-old at 9+ weeks gestation who presented last evening with recurrent recalcitrantUnrelenting nausea and vomiting of .This is her fourth admission in the past week. Patient was hydrated and supported through the night and this morning reports feeling markedly better. Allergies are none Medications are vitamins [facility] Medical social and surgical history is all per the antepartum record HEENT exam is normal Neck is supple no lymphadenopathy no thyromegaly Abdomen is gravid soft nontender nondistended Extremities show no clubbing or cyanosis. There is no Homans' sign. Assessment and plan 9-week with hyperemesis gravidarum. Patient is improved with hydration and supportive medication we did add thiamine this timeAnd we will allow discharge home and have her continue her medications with return to clinic precautions 9 weeks with hyperemesis gravidarum Allergies and Home Medications Allergies Coded Allergies: NKANo Known Allergies (Unverified Allergy, Mild, 09/23/08) Patient Home Medication List Home Medication List Reviewed: Yes Albuterol Sulfate (Proair Hfa) 1 Puff Puff, 2 PUFF IH Q4H PRN for WHEEZING, (Reported) Entered as Reported by: GHASSAN REDMOND on 09/05/17 1335 Famotidine/Pf (Famotidine 20 mg/2 ml Vial) 20 Mg/2 Ml Vial, 20 MG PO DAILY Prescribed by: YORDAN STRONG on 10/30/20 0831 Ondansetron (Ondansetron Odt) 8 Mg Tab.rapdis, 8 MG PO Q6H Prescribed by: YORDAN STRONG on 10/28/20 0803 Promethazine HCl (Promethazine Tablet) 25 Mg Tablet, 25 MG PO Q6H PRN for NAUSEA/VOMITING Prescribed by: YORDAN STRONG on 10/30/20 08 [phenergan supp] Prescribed by: YORDAN STRONG on 10/30/20 0831 Discontinued Medications Amoxicillin/Potassium Clav (Augmentin 500-125 Tablet) 1 Each Tablet, 1 EACH PO TIDWM Discontinued Reason: No Longer Taking Prescribed by: ALLAN CRISTOBAL on 10/06/17 1414 Amoxicillin/Potassium Clav (Augmentin 875-125 Tablet) 1 Each Tablet, 1 EACH PO BID Prescribed by: YORDAN TSRONG on 10/28/20 0803 Budesonide (Pulmicort Flexhaler) 180 Mcg Aer.pow.ba, 1 PUFF IH HS, (Reported) Discontinued Reason: No Longer Taking Entered as Reported by: GHASSAN REDMOND on 09/05/17 1336 Docusate Sodium (Docusate Sodium) 100 Mg Capsule, 100 MG PO BID Discontinued Reason: No Longer Taking Prescribed by: YORDAN STRONG on 09/29/17 2122 Metronidazole (Flagyl) 500 Mg Tablet, 500 MG PO BID WITH MEALS Discontinued Reason: No Longer Taking Prescribed by: ALLAN CRISTOBAL on 10/06/17 1414 Montelukast Sodium (Singulair) 10 Mg Tablet, 10 MG PO HS, (Reported) Discontinued Reason: No Longer Taking Entered as Reported by: GHASSAN REDMOND on 09/05/17 1333 Oxycodone HCl/Acetaminophen (Oxycodone-Acetaminophen 5-325) 1 Each Tablet, 1 TAB PO Q4H PRN for PAIN-MODERATE Discontinued Reason: No Longer Taking Prescribed by: ALLAN CRISTOBAL on 10/06/17 1414 Potassium Bicarbonate/Cit AC (Potassium 25 Meq Tablet Eff) 25 Meq Tablet.eff, 25 MEQ PO BID WITH MEALS Discontinued Reason: No Longer Taking Prescribed by: ALLAN CRISTOBAL on 10/06/17 141 YORDAN BENEDICT MD Nov 01, 2020 08:05
[2020-11-01] MEDS ORDERED: THIA100T68 PO (08:08)
--- NOTE | 2020-11-01 08:08 | Discharge Inst-Surgical ---
Discharge Inst-Surgical Depart Medication/Instructions New, Converted or Re-Newed RX: Transmitted to Pharmacy Consults/Follow Up Patient Instructions: As directed Orders & Referrals Return to clinic tomorrow as scheduled Activity Activity as Tolerated: Yes Diet Discharge Diet: No Restrictions YORDAN BENEDICT MD Nov 01, 2020 08:08
[2020-11-01 08:30] VITALS: BP 109/56
[2020-11-01] MEDS ORDERED: THIAMINE INJECTION 100 MG in NS (IVPB) 50 ML IV SCH (09:00)
== END 2020-11-01 08:05 | disposition home or self-care (01) ==
LOC: WSo 13:16 → LDRP 13:16 → WSo 11-01 09:30 → EDSTATUS 11-02 11:03
PROVIDERS: ADMIT Obstetrics & Gynecology; ATTEND Obstetrics & Gynecology
DX: O21.9 Vomiting of pregnancy, unspecified (principal); Z3A.09 9 weeks gestation of pregnancy
CPT/HCPCS: 81000; 99211; G0378

== ENCOUNTER 2020-11-16 15:35 | Day surgery (SDC) | payer MEDICAID ==
[~2020-11-16] VITALS: Ht 154.9 cm; Wt 86.7 kg
[2020-11-16] VITALS (8 sets, daily range): BP systolic 104–120; BP diastolic 51–73
[~2020-11-16 15:35] MED LIST changes: +FLUC100T6 PO; +THIA100T68 PO
[2020-11-16] MEDS ORDERED: D5 LR IV SOLUTION 1,000 ML IV SCH ×2 (16:30→18:30)
[2020-11-16] MEDS ORDERED: ceFAZolin INJECTION 1,000 MG in WATER (STERILE) FOR INJECTION 10 ML IV ONE (17:00)
[2020-11-16] MEDS ORDERED: LACTATED RINGERS 1,000 ML IV ONE (17:18)
[2020-11-16] MEDS ORDERED: ceFAZolin INJECTION 1,000 MG ONE (17:18)
[2020-11-16] MEDS ORDERED: WATER (STERILE) FOR INJECTION 10 ML ONE (17:20)
[2020-11-16 17:28] LABS: BASOPHILS % (AUTO) 0 % (0-10); EOSINOPHILS # (AUTO) 0.1 10^3/uL (0.0-0.3); EOSINOPHILS % (AUTO) 1 % (0-10); HEMATOCRIT 32 % (35-52); HEMOGLOBIN 11.1 g/dL (11.5-16.0); LYMPHOCYTES % (AUTO) 12 % (12-44); MEAN CORPUSCULAR HEMOGLOBIN 29 pg (25-34); MEAN CORPUSCULAR HGB CONC 35 g/dL (32-36); MEAN CORPUSCULAR VOLUME 84 fL (80-99); MEAN PLATELET VOLUME 9.9 fL (9.0-12.2); MONOCYTES # (AUTO) 0.6 10^3/uL (0.0-1.0); MONOCYTES % (AUTO) 7 % (0-12); NEUTROPHILS # (AUTO) 6.6 10^3/uL (1.8-7.8); NEUTROPHILS % (AUTO) 79 % (42-75); PLATELET COUNT 194 10^3/uL (130-400); WHITE BLOOD COUNT 8.4 10^3/uL (4.3-11.0)
[2020-11-16] MEDS ORDERED: ONDA4TAB11 (17:49)
[2020-11-16] MEDS: LACTATED RINGERS 1,000 ML IV SCH ×2 (18:09→19:29)
--- NOTE | 2020-11-16 18:22 | Progress Note-Pre Operative ---
Pre-Operative Progress Note H&P Reviewed The H&P was reviewed, patient examined and no changes noted. Date Seen by Provider: Nov 16, 2020 Time Seen by Provider: 18:22 Date H&P Reviewed: Nov 16, 2020 Time H&P Reviewed: 18:22 Pre-Operative Diagnosis: 12-week demise/missed YORDAN PAIGE MD Nov 16, 2020 18:22
--- NOTE | 2020-11-16 18:23 | Progress Note-Post Operative ---
Post-Operative Progess Note Surgeon (s)/Manager Nuclear (s) Surgeon YORDAN BENEDICT MD Manager Nuclear: None Pre-Operative Diagnosis 12-week demise/missed AB Post-Operative Diagnosis Same Procedure & Operative Findings Date of Procedure 11/16/20 Procedure Performed/Findings D&C for 12-week missed AB Anesthesia Type GETA Estimated Blood Loss Estimated blood loss (mL): 600cc Specimens/Packing Specimens Removed Uterine contents/products of conception YORDAN BENEDICT MD Nov 16, 2020 18:23
[2020-11-16] MEDS ORDERED: IBUP-1780 PO (18:25)
--- NOTE | 2020-11-16 18:26 | Discharge Inst-Surgical ---
Discharge Inst-Surgical Depart Medication/Instructions New, Converted or Re-Newed RX: Transmitted to Pharmacy Consults/Follow Up Patient Instructions: As directed Orders & Referrals Follow Up Appt: Call to make follow up appt. for patient in 2 weeks. Activity: as tolerated. Diet: As tolerated shower or tub bathe as desired. No driving for 24 hours, no alcoholic beverages for 24 hours, and nothing per vagina (no tampons, douching, or intercoarse) for 2 weeks. Patient to return to the clinic as soon as possible for: Temperature greater than 101F, Severe Pain, Foul discharge from incision or vagina, Excessive Bleeding (more than a period). Activity Activity as Tolerated: No Diet Discharge Diet: No Restrictions YORDAN BENEDICT MD Nov 16, 2020 18:26
[2020-11-16] MEDS ORDERED: KETOROLAC 30 MG/ML VIAL IVP ONE (18:30)
[2020-11-16] MEDS ORDERED: LIDOCAINE PF 2% 5 ML (XYLOCAINE) VIAL ONE (18:30)
[2020-11-16] MEDS ORDERED: ONDANSETRON 4 MG/2 ML (SDV) Z0FRAN ONE ×2 (18:30→19:20)
[2020-11-16] MEDS ORDERED: fentaNYL INJ 100 MCG/2 ML AMP IVP PRN (18:30)
[2020-11-16] MEDS ORDERED: proPOfol 200 MG/20 ML (DIPRIVAN) VIAL IV ONE (18:30)
[2020-11-16] MEDS ORDERED: SEVOFLURANE (ULTANE) 15 ML INHAL SOLN ONE (18:30)
[2020-11-16] MEDS ORDERED: ONDANSETRON 4 MG/2 ML (SDV) Z0FRAN IVP PRN ×2 (18:30→19:30)
[2020-11-16] MEDS ORDERED: fentaNYL INJ 100 MCG/2 ML AMP ONE (18:31)
[2020-11-16] MEDS ORDERED: MIDAZOLAM 2 MG/2 ML (VERSED) VIAL ONE (18:31)
[2020-11-16] MEDS ORDERED: ROCURONIUM 10 MG/ML 5 ML SYRINGE IV ONE (18:39)
[2020-11-16] MEDS ORDERED: SUCCINYLCHOLINE INJ 100 MG/5 ML SYR/VIAL ONE (18:39)
[2020-11-16] MEDS ORDERED: METOCLOPRAMIDE INJ 10 MG/2 ML (REGLAN) ONE (18:52)
[2020-11-16] MEDS ORDERED: HYDROmorphone 2 MG/ML VIAL (DILAUDID) ONE (19:20)
[2020-11-16] MEDS ORDERED: HYDROmorphone 2 MG/ML VIAL (DILAUDID) IV ONE (19:30)
[2020-11-16] MEDS ORDERED: PROMETHAZINE INJ 25 MG/ML (PHENERGAN) AMP IVP ONE (19:30)
--- NOTE | 2020-11-16 19:38 | Anesthesia-General Post-Op ---
General Patient Condition Mental Status/LOC: Same as Preop Cardiovascular: Satisfactory Nausea/Vomiting: Absent Respiratory: Satisfactory Pain: Controlled Complications: Absent Post Op Complications Complications None Follow Up Care/Instructions Patient Instructions None needed. Anesthesia/Patient Condition Patient Condition Patient is doing well, no complaints, stable vital signs, no apparent adverse anesthesia problems. No complications reported per nursing. D/C home per [facility] Criteria: Yes DAVID DUNN CRNA Nov 16, 2020 19:38
--- NOTE | 2020-11-17 00:30 | OPERATIVE REPORT ---
DATE OF SERVICE: 11/16/2020 PREOPERATIVE DIAGNOSIS: A 12-week with demise/missed . POSTOPERATIVE DIAGNOSIS: A 12-week with demise/missed . OPERATIVE PROCEDURE: D and C for a 12-week . OPERATIVE DESCRIPTION: With the patient in the supine position under satisfactory general anesthesia, she was repositioned in dorsal lithotomy position in the [place] stirrups and prepped and draped in the usual fashion for vaginal surgery. Urinary bladder was drained with a straight catheter. A weighted speculum placed in posterior fornix of vagina, cervix exposed and grasped anteriorly with single tooth tenaculum. Uterus was sounded to 14 cm with uterine sound. Cervix was then serially dilated with Jozef dilators to accommodate a #10 curved suction curette was introduced and a large amount of trophoblastic and decidual appearing tissue, blood clot, amniotic fluid and placenta was evacuated. The uterine cavity was then sharply curettaged in all 4 quadrants and all blood clot and debris was evacuated using the curved suction curette a final time. A large amount of tissue was obtained. The suction curette was removed as was the tenaculum. There was a little bit of bleeding from one of the puncture sites on the anterior lip of the cervix. This was touched with silver nitrate to effect hemostasis. With hemostasis there, minimal oozing at the cervical os and the uterus was decreased in size from 10 to 12-week size prior to the procedure down to about 8-week size and nicely contracted. The procedure was complete and terminated. Sponge and needle counts were correct. Blood loss was around 600 mL. The patient tolerated the procedure well and was uneventfully awakened from her general anesthesia and transferred to recovery room in stable condition with plans for discharge home PAR. Job ID: [id number] DocumentID: [id number] Dictated Date: 11/16/2020 19:08:53 Boom Stick Worker Date: 11/17/2020 00:29:19 Dictated By: YORDAN BENEDICT MD
== END 2020-11-16 20:35 | disposition home or self-care (01) ==
LOC: SDC 15:35 → LDRP 15:35 → SDC 20:35
PROVIDERS: ATTEND Obstetrics & Gynecology
DX: O02.1 Missed abortion (principal); J45.909 Unspecified asthma, uncomplicated; K21.9 Gastro-esophageal reflux disease without esophagitis; Z79.899 Other long term (current) drug therapy
CPT/HCPCS: 36415; 85025; 87081; 87635

== ENCOUNTER 2020-11-18 12:36 | Emergency (ER) | payer MEDICAID ==
[~2020-11-18 12:36] MED LIST changes: +ONDA4TAB11
[2020-12-03] MEDS ORDERED: ACHD5005 PO (16:41)
== END 2020-11-18 12:50 | disposition left against medical advice (07) ==
LOC: EDUNIT# 12:36 → ER 12:38
DX: N61.1 Abscess of the breast and nipple (principal)

== ENCOUNTER → 2020-11-24 | Outpatient (CLI) | payer MEDICAID ==
[~2020-11-24] MED LIST changes: +ACHD5005 PO; +SULF1TAB38 PO
--- NOTE | 2020-11-24 16:45 | Diagnostic Imaging Report ---
INDICATION: Bilateral breast abscesses and redness. EXAMINATION: Sonographic interrogation of both breasts was performed. In the right breast at the 9-10 o'clock location, 7 cm from the nipple, there is a complex, irregular fluid collection measuring 6.5 x 2.5 x 3.8 cm. It is most suggestive of an abscess. On the left, from the 12-3 o'clock location, there are numerous areas of ill-defined hypoechogenicity with internal complexity. This area measures 3.6 x 1.4 x 1.4 cm and most consistent with multiple micro-abscesses. No other abnormalities are identified. IMPRESSION: Findings suggestive of bilateral breast abscesses, as described. Follow-up ultrasound after course of therapy in 4-6 weeks would be recommended to confirm clearing. ACR BI-RADS Category 3: Probably benign findings. Result letter will be mailed to the patient. Note: At least 10% of breast cancer is not imaged by mammography. Dictated by: Dictated on workstation # [id number]
== END ==
LOC: RAD 14:56
PROVIDERS: ATTEND Surgery
DX: N61.1 Abscess of the breast and nipple (principal)
CPT/HCPCS: 76642

== ENCOUNTER 2020-11-25 14:49 | Outpatient (CLI) | payer MEDICAID ==
[~2020-11-25] VITALS: Ht 154.9 cm; Wt 88.6 kg
[~2020-11-25 14:49] MED LIST changes: -ACHD5005 PO; -SULF1TAB38 PO
[2020-11-25] MEDS ORDERED: SULF1TAB38 PO (14:56)
[2020-11-26] MEDS ORDERED: ACHD5005 PO (16:31)
== END 2020-11-25 15:04 | disposition home or self-care (01) ==
LOC: PREOP 14:49
PROVIDERS: ATTEND Surgery
DX: Z01.818 Encounter for other preprocedural examination (principal)

== ENCOUNTER 2020-11-26 10:55 | Day surgery (SDC) | payer MEDICAID ==
[2020-11-26] VITALS (11 sets, daily range): BP systolic 104–139; BP diastolic 49–94
[~2020-11-26] VITALS: Ht 154.9 cm; Wt 88.6 kg
[~2020-11-26 10:55] MED LIST changes: +SULF1TAB38 PO
[2020-11-26] MEDS ORDERED: ceFAZolin 2 GM IV Premixed 50 ML IV ONE (11:30)
[2020-11-26] MEDS ORDERED: fentaNYL INJ 100 MCG/2 ML AMP ONE (12:38)
[2020-11-26] MEDS ORDERED: LIDOCAINE PF 2% 5 ML (XYLOCAINE) VIAL ONE (12:38)
[2020-11-26] MEDS ORDERED: MIDAZOLAM 2 MG/2 ML (VERSED) VIAL ONE (12:38)
[2020-11-26] MEDS ORDERED: SEVOFLURANE (ULTANE) 15 ML INHAL SOLN ONE ×2 (12:38→14:28)
[2020-11-26] MEDS ORDERED: ONDANSETRON 4 MG/2 ML (SDV) Z0FRAN ONE ×2 (12:38→17:03)
[2020-11-26] MEDS ORDERED: LACTATED RINGERS 1,000 ML IV PRN (13:15)
[2020-11-26] MEDS ORDERED: LIDOCAINE/EPI 1%-1:100,000 (XYLOCAINE) 20ML ONE (13:42)
--- NOTE | 2020-11-26 14:09 | Progress Note-Pre Operative ---
Pre-Operative Progress Note H&P Reviewed The H&P was reviewed, patient examined and no changes noted. Date Seen by Provider: Nov 26, 2020 Time Seen by Provider: 14:09 Date H&P Reviewed: Nov 26, 2020 Time H&P Reviewed: 14:09 Pre-Operative Diagnosis: right breast abscess DUC MORA DO Nov 26, 2020 14:09
[2020-11-26] MEDS ORDERED: HYDROmorphone 2 MG/ML VIAL (DILAUDID) ONE (14:20)
[2020-11-26] MEDS ORDERED: KETOROLAC 30 MG/ML VIAL ONE (14:42)
--- NOTE | 2020-11-26 14:56 | Anesthesia-General Post-Op ---
General Patient Condition Mental Status/LOC: Same as Preop Cardiovascular: Satisfactory Nausea/Vomiting: Absent Respiratory: Satisfactory Pain: Controlled Complications: Absent Post Op Complications Complications None Follow Up Care/Instructions Patient Instructions None needed. Anesthesia/Patient Condition Patient Condition Patient is doing well, no complaints, stable vital signs, no apparent adverse anesthesia problems. No complications reported per nursing. D/C home per [facility] Criteria: Yes DAVID DUNN CRNA Nov 26, 2020 14:55
[2020-11-26] MEDS ORDERED: ONDANSETRON 4 MG/2 ML (SDV) Z0FRAN IVP PRN (15:00)
[2020-11-26] MEDS ORDERED: HYDROmorphone 2 MG/ML VIAL (DILAUDID) IV ONE (15:00)
--- NOTE | 2020-11-26 15:00 | Progress Note-Post Operative ---
Post-Operative Progess Note Surgeon (s)/Broommaking Supervisor (s) Surgeon DUC MORA DO Broommaking Supervisor: NA Pre-Operative Diagnosis right breast abscess Post-Operative Diagnosis complex multiloculated breast abscess right Procedure & Operative Findings Date of Procedure 11/26/20 Procedure Performed/Findings incision and drainage, debridement [id number] right breast. Anesthesia Type general Estimated Blood Loss Estimated blood loss (mL): minimal Specimens/Packing Specimens Removed culture right breast, right breast tissue DUC MORA DO Nov 26, 2020 15:00
--- NOTE | 2020-11-26 15:02 | Discharge Inst-Simple/Standard ---
Discharge Inst-Standard Patient Instructions/Follow Up Plan of Care/Instructions/FU: - Sunday Activity as Tolerated: No Discharge Diet: Regular Diet Other Inst to Patient Follow up Appt: Make appointment for Sunday - Instructions: No lifting greater than 10 pounds. No strenuous activity. May shower in 24 hours, no tub bath or soaking. Use incentive spirometer at home as directed. No Smoking Skin/Wound Care: Irrigate wound and repack daily. If can not will arrange for it to be done in my office or at hospital. Symptoms to Report: Appetite Changes, Extremity Discoloration, Numbness/Tingling, Swelling Increased, Bleeding Excessive, Eyesight Changes, Pain Increased, Urine Color Change, Constipation(Persistent), Fever over 101 degree F, Pain/Pressure in chest, Urinating Difficulty, Cough Up/Vomit Blood, Heart Beat Irreg/Pounding, Pain/Pressure in jaw, Vaginal Bleeding Increase, Cramps in feet or legs, Lightheadedness, Pain/Pressure in shoulder, Diarrhea(Persistent), Memory Changes Suddenly, Questions/Concerns, Weight gain consecutive days, Dizziness/Fainting, Nausea/Vomiting, Shortness of Breath, Weight gain over 2 pounds If questions or concerns contact your physician Or seek help at emergency department. DUC MORA DO Nov 26, 2020 15:02
[2020-11-26] MEDS ORDERED: ACHD5005 PO (16:31)
[2020-11-26] MEDS ORDERED: ONDANSETRON 4 MG/2 ML (SDV) Z0FRAN IVP ONE (17:00)
--- NOTE | 2020-11-26 22:04 | OPERATIVE REPORT ---
DATE OF SERVICE: 11/26/2020 PREOPERATIVE DIAGNOSIS: Right breast abscess. POSTOPERATIVE DIAGNOSIS: Complex right breast abscess. PROCEDURE: Right breast incision and drainage with debridement of 9 x 7 x 5 cm. SURGEON: Duc Segal DO ANESTHESIA: General. ESTIMATED BLOOD LOSS: Minimal. COMPLICATIONS: None. INDICATIONS: The patient is a 25-year-old female who in September had nipple piercings then soon later began developing abscesses of the bilateral breasts. The patient has had previous ultrasounds demonstrating abscess bilaterally. Just had incision and drainage performed in my office yesterday over superficial area, which had purulent material, but there was a large indurated area. I obtained ultrasound on Sunday, which demonstrated a large drainable abscess on the right breast. She was discussed risks and benefits of procedure and wished to proceed. Consent was signed in the chart. DESCRIPTION OF PROCEDURE: The patient was taken to the operating suite. She was prepped and draped in sterile fashion. Timeout was performed. Over the lateral aspect of the and indurated portion was present in the right breast, a 15-blade scalpel was used to extend the open wound through the indurated area and pocket of purulent material erupted cultures were obtained. Blunt dissection was performed with a lot of indurated tissue and then continued to break into multiple complex pockets of purulent material. Tissues were then continued to be grasped and debrided trying to remove the multiple loculated pockets surrounded by indurated tissue. The overall dimensions were 9 x 7 x 5 cm. The wound was then irrigated with copious amounts of irrigation and hemostasis had been achieved. A piece of breast tissue was sent for pathology. The wound was then packed with Kerlix soaked in Betadine. The breast was then washed and dried and sterile bandage was applied. The patient tolerated procedure well without any complications. She was taken to recovery room in stable condition. RECOMMENDATIONS: The patient will continue on antibiotics. We will need daily packing, which if unable to do it herself will be arranged. The patient may still need further surgical debridement depending upon continued medical course. Job ID: [id number] DocumentID: [id number] Dictated Date: 11/26/2020 17:20:50 Advertising Manager Date: 11/26/2020 22:03:51 Dictated By: DUC SEGAL DO
== END 2020-11-26 17:40 | disposition home or self-care (01) ==
LOC: SDC 10:55
PROVIDERS: ATTEND Surgery
DX: N61.1 Abscess of the breast and nipple (principal); K21.9 Gastro-esophageal reflux disease without esophagitis; F32.9 Major depressive disorder, single episode, unspecified; F41.9 Anxiety disorder, unspecified; J45.909 Unspecified asthma, uncomplicated; Z79.1 Long term (current) use of non-steroidal anti-inflammatories (NSAID); Z79.2 Long term (current) use of antibiotics; Z79.899 Other long term (current) drug therapy
CPT/HCPCS: 84703; 87070; 87075; 87081; 87205

== ENCOUNTER 2020-12-03 12:08 | Day surgery (SDC) | payer MEDICAID ==
[2020-12-03] VITALS (10 sets, daily range): BP systolic 106–137; BP diastolic 48–77
[~2020-12-03] VITALS: Ht 167.7 cm; Wt 88.6 kg
[~2020-12-03 12:08] MED LIST changes: +ACHD5005 PO
[2020-12-03] MEDS ORDERED: ceFAZolin 2 GM IV Premixed 50 ML IV ONE (13:00)
[2020-12-03] MEDS ORDERED: ONDANSETRON 4 MG/2 ML (SDV) Z0FRAN IV ONE (13:00)
[2020-12-03] MEDS ORDERED: LACTATED RINGERS 1,000 ML IV PRN (13:00)
[2020-12-03] MEDS ORDERED: FAMOTIDINE 20MG/2ML IV (PEPCID) IV ONE (13:00)
[2020-12-03] MEDS ORDERED: ceFAZolin 2 GM IV Premixed 50 ML ONE (14:41)
--- NOTE | 2020-12-03 14:46 | Progress Note-Pre Operative ---
Pre-Operative Progress Note H&P Reviewed The H&P was reviewed, patient examined and no changes noted. Date Seen by Provider: Dec 03, 2020 Time Seen by Provider: 14:45 Date H&P Reviewed: Dec 03, 2020 Time H&P Reviewed: 14:45 Pre-Operative Diagnosis: left breast abscess DUC MORA DO Dec 03, 2020 14:45
[2020-12-03] MEDS ORDERED: LIDOCAINE/EPI 1%-1:100,000 (XYLOCAINE) 20ML ONE (15:55)
[2020-12-03] MEDS ORDERED: ONDANSETRON 4 MG/2 ML (SDV) Z0FRAN ONE ×2 (16:25→17:52)
[2020-12-03] MEDS ORDERED: proPOfol 200 MG/20 ML (DIPRIVAN) VIAL IV ONE (16:25)
[2020-12-03] MEDS ORDERED: SEVOFLURANE (ULTANE) 15 ML INHAL SOLN ONE ×2 (16:25→17:02)
[2020-12-03] MEDS ORDERED: fentaNYL INJ 100 MCG/2 ML AMP ONE (16:25)
[2020-12-03] MEDS ORDERED: MIDAZOLAM 2 MG/2 ML (VERSED) VIAL ONE (16:26)
[2020-12-03] MEDS ORDERED: ACHD5005 PO (16:41)
--- NOTE | 2020-12-03 16:42 | Discharge Inst-Simple/Standard ---
Discharge Inst-Standard Discharge Medications New, Converted or Re-Newed RX: Transmitted to Pharmacy Patient Instructions/Follow Up Plan of Care/Instructions/FU: 2 weeks Philipp Activity as Tolerated: Yes Discharge Diet: Regular Diet Other Inst to Patient Follow up Appt: Make appointment for 2 week. Instructions: No strenuous activity. May shower in 24 hours, no tub bath or soaking. Use incentive spirometer at home as directed. No Smoking Skin/Wound Care: Continue dressing changes daily. Irrigate and pack wound with kerlex. Symptoms to Report: Appetite Changes, Extremity Discoloration, Numbness/Tingling, Swelling Increased, Bleeding Excessive, Eyesight Changes, Pain Increased, Urine Color Change, Constipation(Persistent), Fever over 101 degree F, Pain/Pressure in chest, Urinating Difficulty, Cough Up/Vomit Blood, Heart Beat Irreg/Pounding, Pain/Pressure in jaw, Vaginal Bleeding Increase, Cramps in feet or legs, Lightheadedness, Pain/Pressure in shoulder, Diarrhea(Persistent), Memory Changes Suddenly, Questions/Concerns, Weight gain consecutive days, Dizziness/Fainting, Nausea/Vomiting, Shortness of Breath, Weight gain over 2 pounds If questions or concerns contact your physician Or seek help at emergency department. DUC MORA DO Dec 03, 2020 16:42
[2020-12-03] MEDS ORDERED: HYDROmorphone 2 MG/ML VIAL (DILAUDID) ONE ×2 (17:00→17:30)
[2020-12-03] MEDS ORDERED: HYDROmorphone 2 MG/ML VIAL (DILAUDID) IV ONE (17:30)
[2020-12-03] MEDS ORDERED: ONDANSETRON 4 MG/2 ML (SDV) Z0FRAN IVP PRN (17:30)
--- NOTE | 2020-12-03 18:20 | Anesthesia-General Post-Op ---
General Patient Condition Mental Status/LOC: Same as Preop Cardiovascular: Satisfactory Nausea/Vomiting: Absent Respiratory: Satisfactory Pain: Controlled Complications: Absent Post Op Complications Complications None Follow Up Care/Instructions Patient Instructions None needed. Anesthesia/Patient Condition Patient Condition Patient is doing well, no complaints, stable vital signs, no apparent adverse anesthesia problems. No complications reported per nursing. [place] [facility] [place] DAVID DUNN CRNA Dec 03, 2020 18:20
--- NOTE | 2020-12-04 16:18 | OPERATIVE REPORT ---
DATE OF SERVICE: 12/03/2020 PREOPERATIVE DIAGNOSIS: Left breast abscess. POSTOPERATIVE DIAGNOSIS: Left complex breast abscess. PROCEDURE: Incision and drainage and debridement of left breast 8 x 6 cm. SURGEON: Duc Segal DO ANESTHESIA: General. ESTIMATED BLOOD LOSS: Minimal. COMPLICATIONS: None. INDICATIONS: The patient is a 25-year-old female who previously had bilateral nipple piercings. She developed abscesses and had been treated outpatient. The patient was having some drainage from the left breast, which then improved. The left breast then continued to worsen and having significant more pain and having increasing erythema around the surface. She was discussed risks and benefits of procedure and wished to proceed. Consent was signed in the chart. DESCRIPTION OF PROCEDURE: The patient was taken to the operating suite. She was prepped and draped in sterile fashion. Timeout was performed. A 15 blade scalpel was used to make a skin incision along the left lateral aspect of breast. The cautery was then used to dissect down through the subcutaneous breast tissue when multiple loculated pockets, purulent material erupted. Cultures were obtained. Cautery was then used to start to dissect around the indurated mass of the left breast, removing multiple loculated pockets. This extended from the left upper breast all the way to posterior to the nipple. Once all the inflamed tissue was excised, the wound was then irrigated with copious amounts of irrigation. Hemostasis was achieved. The wound was then packed with Kerlix and sterile bandage was applied. Overall, dimensions of the wound was 8 x 6 cm. The patient tolerated procedure well without any complications. She was taken to recovery room in stable condition. RECOMMENDATIONS: The patient will continue with wound care. This has already been arranged. Job ID: [id number] DocumentID: [id number] Dictated Date: 12/04/2020 15:12:19 Mixer Lever Operator Date: 12/04/2020 16:17:10 Dictated By: DUC SEGAL DO
== END 2020-12-03 18:56 ==
LOC: SDC 12:08
PROVIDERS: ATTEND Surgery
DX: T81.49XA Infection following a procedure, other surgical site, initial encounter (principal); N61.1 Abscess of the breast and nipple; J45.909 Unspecified asthma, uncomplicated; Z79.891 Long term (current) use of opiate analgesic; Z79.1 Long term (current) use of non-steroidal anti-inflammatories (NSAID); Z79.2 Long term (current) use of antibiotics; Z79.899 Other long term (current) drug therapy
CPT/HCPCS: 84703; 87070; 87075; 87081; 87101; 87205

== ENCOUNTER → 2021-06-23 | Outpatient (CLI) | payer MEDICAID ==
[~2021-06-23] MED LIST changes: +CLIN-144 PO; +FLUC100T10 PO; -FLUC100T6 PO
--- NOTE | 2021-06-23 12:23 | Diagnostic Imaging Report ---
INDICATION: Patient has history of bilateral breast abscesses and surgical evacuation. While she has no current complaints on the right she has new tender redness, palpable fullness and draining wound from the left breast. Between the 1 and 3:00 positions in the left breast deep to the site of draining wound there is a large complex hypoechoic heterogeneous peripherally vascularized collection presumed to reflect a recurrent abscess its dimensions are 3.1 x 1.9 x 3.1 cm superficially this extends to abut the skin surface. This corresponds to the site of active draining wound. There is a 2nd area in the lower inner quadrant of the left breast around a 7 to 8 o'clock position measuring 3.7 x 3.3 x 2.7 cm also presumed to reflect an abscess. Portions of its lobations extend to approach the skin surface but did not clearly extend through the skin. These 2 measured processes may bridge one another posterior to the nipple but this could not be confirmed. No other focal abnormality. IMPRESSION: Large superficial complex fluid collection with peripheral vascularity presumed recurrent abscess left breast upper outer quadrant 1 to 3 o'clock position, has its superficial portion abutting the skin surface. This collection may bridge and communicate with a 2nd area in the lower inner quadrant around the 7-8 o'clock positions also believed to be a developing abscess of 3.7 cm long axis. Dictated by: Dictated on workstation # [id number]
== END ==
LOC: RAD 09:39
PROVIDERS: ATTEND Surgery
DX: N64.4 Mastodynia (principal)
CPT/HCPCS: 76641

== ENCOUNTER 2021-06-24 07:54 | Day surgery (SDC) | payer MEDICAID ==
[~2021-06-24] VITALS: Ht 154.9 cm; Wt 88.6 kg
[2021-06-24] VITALS (10 sets, daily range): BP systolic 93–137; BP diastolic 53–98
[~2021-06-24 07:54] MED LIST changes: -CLIN-144 PO
[2021-06-24] MEDS ORDERED: ONDANSETRON 4 MG/2 ML (SDV) Z0FRAN IV ONE (08:30)
[2021-06-24] MEDS ORDERED: FAMOTIDINE 20MG/2ML IV (PEPCID) IV ONE (08:30)
[2021-06-24] MEDS ORDERED: SCOPOLAMINE 1.5 MG (TRANSDERM-SCOP) PATCH TOP ONE (08:30)
[2021-06-24] MEDS ORDERED: CLINDAMYCIN 600 MG/50 ML IVPB 50 ML IV ONE (08:42)
[2021-06-24] MEDS ORDERED: ONDANSETRON 4 MG/2 ML (SDV) Z0FRAN ONE (09:53)
[2021-06-24] MEDS ORDERED: LIDOCAINE PF 2% 5 ML (XYLOCAINE) VIAL ONE (09:53)
[2021-06-24] MEDS ORDERED: proPOfol 200 MG/20 ML (DIPRIVAN) VIAL IV ONE (09:53)
[2021-06-24] MEDS ORDERED: fentaNYL INJ 100 MCG/2 ML AMP ONE (09:53)
[2021-06-24] MEDS ORDERED: SEVOFLURANE (ULTANE) 15 ML INHAL SOLN ONE (09:53)
[2021-06-24] MEDS ORDERED: MIDAZOLAM 2 MG/2 ML (VERSED) VIAL ONE (09:54)
[2021-06-24] MEDS ORDERED: LIDOCAINE/EPI 1%-1:200,000 (XYLOCAINE) 30 ML VIAL ONE (09:56)
--- NOTE | 2021-06-24 11:03 | Progress Note-Pre Operative ---
Pre-Operative Progress Note H&P Reviewed The H&P was reviewed, patient examined and no changes noted. Date Seen by Provider: June 24, 2021 Time Seen by Provider: 11:00 Date H&P Reviewed: June 24, 2021 Time H&P Reviewed: 11:01 Pre-Operative Diagnosis: left breast abscess DUC MORA DO June 24, 2021 11:03
--- NOTE | 2021-06-24 11:57 | Anesthesia-General Post-Op ---
General Patient Condition Mental Status/LOC: Same as Preop Cardiovascular: Satisfactory Nausea/Vomiting: Absent Respiratory: Satisfactory Pain: Controlled Complications: Absent Post Op Complications Complications None Follow Up Care/Instructions Patient Instructions None needed. Anesthesia/Patient Condition Patient Condition Patient is doing well, no complaints, stable vital signs, no apparent adverse anesthesia problems. No complications reported per nursing. JUSTIN ANDERSON CRNA June 24, 2021 11:57
[2021-06-24] MEDS ORDERED: ACHD5005 PO (11:58)
[2021-06-24] MEDS ORDERED: morphine INJ 10 MG/ML 1ML (SYR OR VIAL) IVP ONE (12:00)
[2021-06-24] MEDS ORDERED: KETOROLAC 30 MG/ML VIAL IVP ONE (12:00)
[2021-06-24] MEDS ORDERED: ONDANSETRON 4 MG/2 ML (SDV) Z0FRAN IVP PRN (12:00)
[2021-06-24] MEDS ORDERED: PROMETHAZINE INJ 25 MG/ML (PHENERGAN) AMP IVP ONE (12:00)
--- NOTE | 2021-06-24 12:00 | Discharge Inst-Simple/Standard ---
Discharge Inst-Standard Discharge Medications New, Converted or Re-Newed RX: Transmitted to Pharmacy Patient Instructions/Follow Up Plan of Care/Instructions/FU: 1 week [place] Activity as Tolerated: Yes Discharge Diet: Regular Diet Other Inst to Patient Follow up Appt: Make appointment for 1 week. Instructions: No lifting greater than 10 pounds. No strenuous activity. May shower in 24 hours, no tub bath or soaking. Use incentive spirometer at home as directed. No Smoking Skin/Wound Care: Irrigate daily and pack with iodoform gauze. Then cover with sterile dressing and secure. Do daily and as needed. Symptoms to Report: Appetite Changes, Extremity Discoloration, Numbness/Tingling, Swelling Increased, Bleeding Excessive, Eyesight Changes, Pain Increased, Urine Color Change, Constipation(Persistent), Fever over 101 degree F, Pain/Pressure in chest, Urinating Difficulty, Cough Up/Vomit Blood, Heart Beat Irreg/Pounding, Pain/Pressure in jaw, Vaginal Bleeding Increase, Cramps in feet or legs, Lightheadedness, Pain/Pressure in shoulder, Diarrhea(Persistent), Memory Changes Suddenly, Questions/Concerns, Weight gain consecutive days, Dizziness/Fainting, Nausea/Vomiting, Shortness of Breath, Weight gain over 2 pounds If questions or concerns contact your physician Or seek help at emergency department. DUC MORA DO June 24, 2021 12:00
[2021-06-24] MEDS ORDERED: CLIN-144 PO (12:03)
[2021-06-24] MEDS ORDERED: LACTATED RINGERS 1,000 ML IV PRN (14:30)
--- NOTE | 2021-06-25 21:14 | OPERATIVE REPORT ---
DATE OF SERVICE: 06/24/2021 PREOPERATIVE DIAGNOSIS: Left breast abscess. POSTOPERATIVE DIAGNOSIS: Left breast abscess. PROCEDURE: Incision and drainage, left breast abscess through skin and subcutaneous tissue. SURGEON: Duc Segal DO ANESTHESIA: General. ESTIMATED BLOOD LOSS: Minimal. COMPLICATIONS: None. INDICATIONS: The patient is a 25-year-old female who has history of multiple breast abscesses bilaterally. The patient had some trauma to the left breast with a case of pop. She started having a small pinhole with some drainage. She had an ultrasound that demonstrated abscess with also possibly communicating area to a deeper pocket of abscess. She was discussed risks and benefits of procedure and wished to proceed. Consent was signed in the chart. DESCRIPTION OF PROCEDURE: The patient was taken to the operating suite. She was prepped and draped in sterile fashion. Timeout was performed. Going through the existing scar, approximately 4 cm incision was made abscess cavity and also noting the communication to the deeper pocket. This was then opened. A large pocket retroareolar present with minimal purulent material. This area was all opened up and released also to help with packing. The wound was then irrigated with copious amounts of irrigation and suction. Hemostasis was achieved. The wound was then packed with iodoform gauze. The area was washed and dried and sterile bandage was applied. The patient tolerated procedure well without any complications. She was taken to recovery room in stable condition. RECOMMENDATIONS: The patient will continue with daily wound care and make sure to pack the entire cavity. The patient understands still may need further surgical intervention depending upon progression. Job ID: [id number] DocumentID: [id number] Dictated Date: 06/25/2021 11:31:15 Boring Mill Set Up Operator Vertical Date: 06/25/2021 21:13:45 Dictated By: DUC SEGAL DO
== END 2021-06-24 13:45 | disposition home or self-care (01) ==
LOC: SDC 07:54
PROVIDERS: ATTEND Surgery
DX: N61.1 Abscess of the breast and nipple (principal); E66.9 Obesity, unspecified; Z68.36 Body mass index [BMI] 36.0-36.9, adult
CPT/HCPCS: 84703; 87081